=== PATIENT | male | born 1970 | race Caucasian/White ===

== ENCOUNTER 2018-06-19 08:40 | Emergency (ER) | payer BC, OTHER ==
[~2018-06-19] VITALS: Ht 172.7 cm; Wt 95.4 kg
[2018-06-19 08:45] VITALS: BP 146/93
--- NOTE | 2018-06-19 08:46 | NUR ---
PT AMBULATES TO BED 4
--- NOTE | 2018-06-19 08:50 | NUR ---
REPORT GIVEN TO ELIZABETH ALBERT
--- NOTE | 2018-06-19 08:56 | NUR ---
PATIENT PRESENTS TO ED WITH C/O LLQ ABD PAIN X2DAYS. PATIENT DESCRIBES PAIN CONSTANT, 9/10. PATIENT REPORTS OF HAVING DIARRHEA X2 YESTERDAY. PATIENT DENIES NAUSEA/VOMITING. NO FEVER AT THIS TIME. DR AWARE OF PATIENT'S STATUS
--- NOTE | 2018-06-19 09:11 | NUR ---
Patient being evaluated by physician at bedside.
[2018-06-19] MEDS ORDERED: KETOROLAC 60 MG/2 ML VIAL IM ONE (09:20)
--- NOTE | 2018-06-19 10:04 | NUR ---
PT TAKEN TO CT VIA WHEELCHAIR
[2018-06-19 11:00] VITALS: BP 124/87
== END 2018-06-19 11:00 | disposition home or self-care (01) ==
LOC: MED 08:40
DX: K57.90 Diverticulosis of intestine, part unspecified, without perforation or abscess without bleeding (principal)
CPT/HCPCS: 74022; 74176; 81002; 96372; 99284; J1885